=== PATIENT | male | born 1955 | race Caucasian/White ===

== ENCOUNTER 2023-04-15 13:57 | Inpatient (IN) | payer OTHER ==
[~2023-04-15] VITALS: Ht 167.6 cm; Wt 68.0 kg
[2023-04-15 14:13] VITALS: BP_SYST 114; PULSE 67; RESP 19; TEMP 98; O2SAT 96
[2023-04-15] MEDS ORDERED: NACL 0.9% 2,000 ML IV ONE (14:30)
[2023-04-15] MEDS ORDERED: ONDANSETRON HCL 4 MG/2 ML VIAL IVP ONE (14:30)
[2023-04-15 15:08] LABS: BASOPHILS % (AUTO) 0.4 % (0.0-2.0); EOSINOPHILS % (AUTO) 0.1 % (0.0-4.0); HEMATOCRIT 42.3 % (36-54); HEMOGLOBIN 14.1 g/dL (14.0-18.0); LYMPHOCYTES # (AUTO) 0.7 K/uL (1.0-5.5); LYMPHOCYTES % (AUTO) 8.2 % (20.5-51.5); MEAN CORPUSCULAR HEMOGLOBIN 29 pg (27-31); MEAN CORPUSCULAR HGB CONC 33 % (32-36); MEAN CORPUSCULAR VOLUME 86 fL (79.0-98.0); MONOCYTES # (AUTO) 0.8 K/uL (0.0-1.0); MONOCYTES % (AUTO) 8.8 % (1.7-9.3); NEUTROPHILS # (AUTO) 7.2 K/uL (1.8-7.7); NEUTROPHILS % (AUTO) 82.5 % (40.0-70.0); PLATELET COUNT (AUTO) 340 K/uL (130-430); RED BLOOD CELL COUNT(AUTO) 4.91 MIL/uL (4.2-6.2); RED CELL DISTRIBUTION WIDTH 13.9 % (9.0-15.0); WHITE BLOOD COUNT (AUTO) 8.8 K/uL (4.8-10.8)
[2023-04-15 15:25] LABS: ANION GAP 12 (5-15); CALCIUM 8.2 mg/dL (8.4-11.0); CARBON DIOXIDE 26 mmol/L (23-29); CHLORIDE 96 mmol/L (98-107); CREATININE 2.14 mg/dL (0.55-1.30); GFR AFRICAN AMERICAN 40 mL/min (>90); GLUCOSE 231 mg/dL (74-106); POTASSIUM 4.3 mmol/L (3.5-5.1); SODIUM SERUM 134 mmol/L (136-145); UREA NITROGEN, BLOOD 52 mg/dL (8-21)
[2023-04-15 15:32] LABS: ALANINE AMINOTRANSFERASE 22 U/L (12-78); ALBUMIN 2.3 g/dL (3.4-4.8); ASPARTATE AMINOTRANSFERASE 14 U/L (10-37); BILIRUBIN,DIRECT 0.3 mg/dL (0.0-0.3); CREATINE KINASE, TOTAL 21 U/L (39-308); LIPASE 23 U/L (16-77); TOTAL BILIRUBIN 0.7 mg/dL (0.0-1.0); TOTAL PROTEIN, SERUM 6.4 g/dL (6.4-8.3)
[2023-04-15 16:05] LABS: ALCOHOL, BLOOD < 3 mg/dL (<10); GFR NON AFRICAN-AMERICAN 33 mL/min (>90)
[2023-04-15] MEDS ORDERED: ONDANSETRON HCL 4 MG/2 ML VIAL IVP PRN (17:45)
[2023-04-15] MEDS ORDERED: LISI20TA30 PO (17:47)
[2023-04-15] MEDS ORDERED: GLIM1TAB18 PO (17:47)
[2023-04-15] MEDS ORDERED: TAMS0.4C96 PO (17:47)
[2023-04-15] MEDS ORDERED: ATOR20TA64 PO (17:47)
[2023-04-15 20:25] LABS: BILIRUBIN,URINE 1+ (NEGATIVE); BLOOD, URINE NEGATIVE (NEGATIVE); COLOR,URINE YELLOW (YELLOW); GLUCOSE,URINE 2+ (NEGATIVE); KETONES,URINE 1+ (NEGATIVE); LEUKOCYTE ESTERASE ,URINE NEGATIVE (NEGATIVE); NITRITE, URINE NEGATIVE (NEGATIVE); PH,URINE 5.5 (5.0-8.0); PROTEIN URINE 2+ (NEGATIVE); UROBILINOGEN,URINE 0.2 (0.2-1.0)
[2023-04-15 20:31] LABS: CLARITY/URINE SLIGHTLY HAZY (CLEAR)
[2023-04-15 20:47] VITALS: BP_SYST 165; PULSE 85; RESP 16; TEMP 98.6; O2SAT 96
[2023-04-15 20:52] LABS: BARBITURATE, URINE NEGATIVE (NEG <=200); BENZODIAZEPINE, URINE NEGATIVE (NEG <=150); CANNABINOID, URINE NEGATIVE (NEG <=50); COCAINE, URINE NEGATIVE (NEG <=150); METHAMPHETAMINES SCREEN,URINE NEGATIVE (NEG <=500); URINE AMPHETAMINE NEGATIVE (NEG <=500); URINE METHADONE NEGATIVE (NEG <=200)
[2023-04-15 20:53] LABS: OPIATE, URINE NEGATIVE (NEG <=100); PHENCYCLIDINE SCREEN,URINE NEGATIVE (NEG <=25); UR TRICYCLIC ANTIDEPRESSANTS NEGATIVE (NEG <=300); URINE OXYCODONE SCREEN NEGATIVE (NEG <=100)
[2023-04-15] MEDS: D5/0.45 NS 1,000 ML IV SCH (21:25)
[2023-04-15 21:32] LABS: BACTERIA,URINE FEW /HPF (None Seen); COARSE GRANULAR CASTS,URINE 0-10 /LPF (None Seen); FINE GRANULAR CASTS,URINE 0-10 /LPF (None Seen); MUCUS,URINE None Seen /LPF (None Seen); RBC,URINE NONE SEEN /HPF (0-3); WBC,URINE 0-3 /HPF (0-3)
[2023-04-15 23:00] VITALS: O2SAT 96
[2023-04-15 23:20] VITALS: BP_SYST 165; PULSE 85; RESP 16; TEMP 98.6
[2023-04-16] VITALS (7 sets, daily range): BP systolic 140–170; PULSE 60–85; RESP 16–18; TEMP 97–98.2; O2SAT 94–98
[2023-04-16] MEDS: cloNIDine HCL 0.1 MG TABLET PO PRN (00:14)
[2023-04-16] MEDS: D5/0.45 NS 1,000 ML IV SCH ×4 (02:26→21:15)
[2023-04-16] MEDS: INSULIN REGULAR, HUMAN 100 UNITS/ML, 3 ML VIAL (humuLIN R) SUBCUT PRN ×3 (06:13→21:10)
[2023-04-16 06:24] LABS: BASOPHILS % (AUTO) 0.2 % (0.0-2.0); EOSINOPHILS % (AUTO) 0.4 % (0.0-4.0); HEMATOCRIT 35.9 % (36-54); HEMOGLOBIN 12.4 g/dL (14.0-18.0); LYMPHOCYTES # (AUTO) 0.7 K/uL (1.0-5.5); LYMPHOCYTES % (AUTO) 8.7 % (20.5-51.5); MEAN CORPUSCULAR HEMOGLOBIN 30 pg (27-31); MEAN CORPUSCULAR HGB CONC 34 % (32-36); MEAN CORPUSCULAR VOLUME 86 fL (79.0-98.0); MONOCYTES # (AUTO) 0.8 K/uL (0.0-1.0); MONOCYTES % (AUTO) 10.2 % (1.7-9.3); NEUTROPHILS # (AUTO) 6.5 K/uL (1.8-7.7); NEUTROPHILS % (AUTO) 80.5 % (40.0-70.0); PLATELET COUNT (AUTO) 279 K/uL (130-430); RED BLOOD CELL COUNT(AUTO) 4.17 MIL/uL (4.2-6.2); RED CELL DISTRIBUTION WIDTH 13.5 % (9.0-15.0); WHITE BLOOD COUNT (AUTO) 8.1 K/uL (4.8-10.8)
[2023-04-16 06:55] LABS: ALBUMIN 1.8 g/dL (3.4-4.8); CALCIUM 7.3 mg/dL (8.4-11.0); CREATININE 1.64 mg/dL (0.55-1.30); TOTAL BILIRUBIN 0.4 mg/dL (0.0-1.0); TOTAL PROTEIN, SERUM 5.1 g/dL (6.4-8.3)
[2023-04-16] MEDS ORDERED: PANTOPRAZOLE SODIUM 40 MG TAB PO ONE (14:45)
[2023-04-16] MEDS ORDERED: ATORVASTATIN 20 MG TABLET PO ONE (14:45)
[2023-04-16] MEDS: TAMSULOSIN HCL 0.4 MG CAP PO SCH (21:09)
[2023-04-17] VITALS: BP_SYST 149; PULSE 78; RESP 17; TEMP 97.7; O2SAT 97
[2023-04-17 05:37] LABS: BASOPHILS % (AUTO) 0.3 % (0.0-2.0); EOSINOPHILS % (AUTO) 0.5 % (0.0-4.0); HEMATOCRIT 35.2 % (36-54); LYMPHOCYTES # (AUTO) 0.8 K/uL (1.0-5.5); LYMPHOCYTES % (AUTO) 8.9 % (20.5-51.5); MEAN CORPUSCULAR HEMOGLOBIN 29 pg (27-31); MEAN CORPUSCULAR HGB CONC 34 % (32-36); MEAN CORPUSCULAR VOLUME 86 fL (79.0-98.0); MONOCYTES # (AUTO) 0.8 K/uL (0.0-1.0); MONOCYTES % (AUTO) 9.5 % (1.7-9.3); NEUTROPHILS % (AUTO) 80.8 % (40.0-70.0); PLATELET COUNT (AUTO) 261 K/uL (130-430); RED BLOOD CELL COUNT(AUTO) 4.08 MIL/uL (4.2-6.2); RED CELL DISTRIBUTION WIDTH 13.5 % (9.0-15.0); WHITE BLOOD COUNT (AUTO) 8.7 K/uL (4.8-10.8)
[2023-04-17 05:56] LABS: CALCIUM 7.6 mg/dL (8.4-11.0); CREATININE 1.47 mg/dL (0.55-1.30); POTASSIUM 4.1 mmol/L (3.5-5.1)
[2023-04-17] MEDS: INSULIN REGULAR, HUMAN 100 UNITS/ML, 3 ML VIAL (humuLIN R) SUBCUT PRN ×3 (05:56→21:18)
[2023-04-17] MEDS: D5/0.45 NS 1,000 ML IV SCH ×3 (06:57→14:08)
[2023-04-17 08:00] VITALS: BP_SYST 167; PULSE 71; RESP 16; TEMP 97.1; O2SAT 99
[2023-04-17] MEDS: PANTOPRAZOLE SODIUM 40 MG TAB PO SCH (08:43)
[2023-04-17] MEDS: ATORVASTATIN 20 MG TABLET PO SCH (08:43)
[2023-04-17] MEDS: lisinopriL 20 MG TABLET PO SCH (08:43)
[2023-04-17 11:34] VITALS: BP_SYST 151; PULSE 85; RESP 17; TEMP 97.9; O2SAT 96
[2023-04-17 16:48] VITALS: BP_SYST 147; PULSE 80; RESP 17; TEMP 98.6; O2SAT 93
[2023-04-17] MEDS: TAMSULOSIN HCL 0.4 MG CAP PO SCH (21:17)
[2023-04-18 00:42] VITALS: BP_SYST 166; PULSE 77; RESP 18; TEMP 96.5; O2SAT 77
[2023-04-18] MEDS: D5/0.45 NS 1,000 ML IV SCH ×2 (05:41→16:12)
[2023-04-18] MEDS: INSULIN REGULAR, HUMAN 100 UNITS/ML, 3 ML VIAL (humuLIN R) SUBCUT PRN ×3 (06:27→17:32)
[2023-04-18 08:03] VITALS: O2SAT 95
[2023-04-18] MEDS: PANTOPRAZOLE SODIUM 40 MG TAB PO SCH (09:21)
[2023-04-18] MEDS: ATORVASTATIN 20 MG TABLET PO SCH (09:21)
[2023-04-18] MEDS: lisinopriL 20 MG TABLET PO SCH (09:21)
[2023-04-18 09:52] VITALS: BP_SYST 159; PULSE 74; RESP 18; TEMP 97.9; O2SAT 95
[2023-04-18 12:30] VITALS: BP_SYST 150; PULSE 78; RESP 18; TEMP 97.2; O2SAT 94
[2023-04-18 15:31] VITALS: BP_SYST 154; PULSE 80; RESP 18; TEMP 99.1; O2SAT 97
[2023-04-18] MEDS: cloNIDine HCL 0.1 MG TABLET PO PRN (16:13)
[2023-04-18 16:53] VITALS: BP_SYST 168; PULSE 81; RESP 17; TEMP 97.9; O2SAT 94
== END 2023-04-18 17:30 | DRG 682 ==
LOC: SED 13:57 → STU 17:35
PROVIDERS: ADMIT Specialist; ATTEND Specialist
DX: N17.9 Acute kidney failure, unspecified (principal); G93.41 Metabolic encephalopathy; I69.354 Hemiplegia and hemiparesis following cerebral infarction affecting left non-dominant side; R62.7 Adult failure to thrive; E86.0 Dehydration; I12.9 Hypertensive chronic kidney disease with stage 1 through stage 4 chronic kidney disease, or unspecified chronic kidney disease; E11.22 Type 2 diabetes mellitus with diabetic chronic kidney disease; N18.31 Chronic kidney disease, stage 3a; Z68.24 Body mass index [BMI] 24.0-24.9, adult
CPT/HCPCS: 36415; 70450-TC; 71045; 76376; 76700-TC; 80048; 80053; 80076; 80307; 81000; 81001; 81015; 82550; 82962; 83605; 83690; 84484; 85025; 87040; 92610-GN; 93005; 97116-GP; 97163-GP; 99285; G0378; G0482; J1815; J2405